=== PATIENT | female | born 1960 | race Two or more races ===

== ENCOUNTER 2024-03-03 10:30 | Outpatient (CLI) | payer OTHER ==
[~2024-03-03 10:30] MED LIST: ADULT LOW DOSE81 M1 PO; LEVOFLOXACIN500 MG PO; LISINOPRIL20 MG PO; PAIN RELIEVER500 M2 PO; TAMS0.4C PO; TOPROL XL100 M1 PO; ZESTRIL20 MG PO
== END 2024-03-03 10:36 | disposition home or self-care (01) ==
LOC: MRI 10:30
PROVIDERS: ATTEND Internal Medicine Hematology & Oncology
DX: C64.2 Malignant neoplasm of left kidney, except renal pelvis (principal); R93.422 Abnormal radiologic findings on diagnostic imaging of left kidney; I10 Essential (primary) hypertension; M19.91 Primary osteoarthritis, unspecified site
CPT/HCPCS: 70553; Q9965

== ENCOUNTER 2024-04-16 12:34 | Outpatient (CLI) | payer OTHER | END 2024-04-16 12:37 | disposition home or self-care (01) | LOC: RAD 12:34 | PROVIDERS: ATTEND Internal Medicine | DX: I10 Essential (primary) hypertension (principal) ==

== ENCOUNTER 2024-05-01 07:00 | Inpatient (IN) | payer OTHER ==
[~2024-05-01] VITALS: Ht 160 cm; Wt 86.2 kg
[~2024-05-01 07:00] MED LIST changes: -OMEPRAZOLE
[2024-05-01 07:24] LABS: URINE APPEARANCE Clear; URINE BILIRRUBIN Negative (NEGATIVE); URINE BLOOD Negative; URINE COLOR Yellow; URINE GLUCOSE Negative (NEGATIVE); URINE KETONE Negative (NEGATIVE); URINE LEUKOCYTE Negative; URINE NITRATE Negative; URINE PROTEIN Negative (NEGATIVE)
[2024-05-01 07:27] LABS: URINE BACTERIA 136.9 uL (0.0-1933); URINE EPITHELIAL CELLS 16.1 uL (0.0-38.8); URINE RBC 6.6 uL (0.0-20.8); URINE WBC 5.8 uL (0.0-23.2)
[2024-05-01] MEDS ORDERED: OMEPRAZOLE (07:28)
[2024-05-01 07:37] LABS: HEMATOCRIT 33.8 % (36.0-45.00); HEMOGLOBIN 12.1 g/dL (12.0-15.00); MEAN CELL VOLUME 92.7 fL (80.00-100.00); MEAN CORPUSCULAR HEMOGLOBIN 33.2 pg (27.00-32.0); MEAN CORPUSCULAR HGB CONC 35.8 g/dl (32.0-36.0); PLATELET COUNT 205 K/uL (150-450); RED BLOOD COUNT 3.65 M/uL (4.00-6.00); RED CELL DISTRIBUTION WIDTH 13.9 % (11.5-14.5)
[2024-05-01 07:51] LABS: PARTIAL THROMBOPLASTIN TIME 25.7 SECONDS (22.0-34.0); PROTHROMBIN TIME 10.9 SECONDS (9.0-11.5)
[2024-05-01 09:08] VITALS: BP 144/88
[2024-05-01 10:14] LABS: RH POSITIVE
[2024-05-01 11:01] LABS: CALCIUM 8.8 mg/dL (8.5-10.1); CREATININE SERUM 1.11 mg/dL (0.55-1.02); GFR 49.33; POTASSIUM 3.85 mEq/L (3.5-5.1)
[2024-05-09] MEDS ORDERED: CEFAZOLIN SODIUM 1,000 MG VIAL ONE (07:25)
[2024-05-09] MEDS ORDERED: ENOXAPARIN SODIUM 40 MG/0.4 ML SYRINGE SUBCUTANEO ONE (07:25)
[2024-05-09] MEDS ORDERED: BUPIVACAINE HCL/MPF 0.5% 30ML VIAL ONE (07:25)
[2024-05-09] MEDS ORDERED: ACID REDUCER20 M1 (10:57)
[2024-05-09] MEDS ORDERED: MORPHINE SULFATE 2 MG/ML CARTRIDGE IV ONE ×2 (17:05→17:35)
[2024-05-09] MEDS ORDERED: DEXTROSE 5 %-0.45 % SOD CHLORD 1,000 ML IV SCH (18:37)
[2024-05-09] MEDS ORDERED: SIMETHICONE 125 MG CAPSULE PO SCH (18:42)
[2024-05-09] MEDS ORDERED: FAMOtidine 20 MG TABLET PO SCH (18:42)
[2024-05-09] MEDS ORDERED: ONDANSETRON HCL 2 MG/ML VIAL IV PRN (18:45)
[2024-05-09] MEDS ORDERED: MORPHINE SULFATE 2 MG/ML CARTRIDGE IV PRN (18:45)
[2024-05-09 19:26] VITALS: BP 113/74; O2SAT 99
[2024-05-10 01:00] VITALS: BP 114/70; O2SAT 100
[2024-05-10] MEDS ORDERED: CEFAZOLIN SODIUM 1,000 MG VIAL IV SCH (01:00)
[2024-05-10 08:00] VITALS: BP 110/70; O2SAT 97
[2024-05-10 08:15] LABS: HEMATOCRIT 35.6 % (36.0-45.00); HEMOGLOBIN 12.3 g/dL (12.0-15.00); MEAN CELL VOLUME 93.7 fL (80.00-100.00); MEAN CORPUSCULAR HEMOGLOBIN 32.5 pg (27.00-32.0); MEAN CORPUSCULAR HGB CONC 34.6 g/dl (32.0-36.0); PLATELET COUNT 179 K/uL (150-450)
[2024-05-10 08:34] LABS: CALCIUM 8.1 mg/dL (8.5-10.1); CREATININE SERUM 0.98 mg/dL (0.55-1.02); GFR 56.96; POTASSIUM 3.95 mEq/L (3.5-5.1)
[2024-05-10] MEDS ORDERED: DOCUSATE SODIUM 100MG CAP PO SCH (09:00)
[2024-05-10] MEDS ORDERED: LISINOPRIL 20 MG TABLET PO SCH (10:59)
[2024-05-10] MEDS ORDERED: ENOXAPARIN SODIUM 30 MG/0.3 ML SYRINGE SUBCUTANEO ONE (11:00)
[2024-05-10] MEDS ORDERED: ACETAMINOPHEN WITH CODEINE 1 UDTAB TABLET PO PRN (11:00)
[2024-05-10] MEDS ORDERED: PANTOPRAZOLE SODIUM 40 MG TABLET.DR PO NR (11:45)
[2024-05-10] MEDS ORDERED: METOPROLOL SUCCINATE 100 MG TAB.SR.24H PO NR (11:45)
[2024-05-10] MEDS ORDERED: POLYETHYLENE GLYCOL 3350 17 GM BLIST.PACK PO SCH (12:00)
[2024-05-10 16:02] VITALS: BP 113/73; O2SAT 96
[2024-05-10 16:56] VITALS: BP 133/80; O2SAT 99
[2024-05-11 00:51] VITALS: BP 127/74; O2SAT 96
[2024-05-11 07:48] LABS: HEMATOCRIT 35.4 % (36.0-45.00); HEMOGLOBIN 11.9 g/dL (12.0-15.00); MEAN CELL VOLUME 95.1 fL (80.00-100.00); MEAN CORPUSCULAR HEMOGLOBIN 32.1 pg (27.00-32.0); MEAN CORPUSCULAR HGB CONC 33.7 g/dl (32.0-36.0); PLATELET COUNT 158 K/uL (150-450); RED BLOOD COUNT 3.72 M/uL (4.00-6.00); RED CELL DISTRIBUTION WIDTH 13.5 % (11.5-14.5)
[2024-05-11 07:58] LABS: CALCIUM 8.3 mg/dL (8.5-10.1); CREATININE SERUM 0.83 mg/dL (0.55-1.02); GFR 68.99; POTASSIUM 4.1 mEq/L (3.5-5.1)
[2024-05-11 08:00] VITALS: BP 116/73; O2SAT 95
[2024-05-11] MEDS ORDERED: METOPROLOL SUCCINATE 100 MG TAB.SR.24H PO SCH (09:00)
[2024-05-11] MEDS ORDERED: LISINOPRIL 20 MG TABLET PO SCH (09:00)
[2024-05-11] MEDS ORDERED: PANTOPRAZOLE SODIUM 40 MG TABLET.DR PO SCH (09:00)
[2024-05-11] MEDS ORDERED: ENOXAPARIN SODIUM 30 MG/0.3 ML SYRINGE SUBCUTANEO NR (11:30)
[2024-05-11 16:47] VITALS: BP 124/77; O2SAT 98
[2024-05-12] MEDS ORDERED: ENOXAPARIN SODIUM 30 MG/0.3 ML SYRINGE SUBCUTANEO SCH (09:00)
== END 2024-05-12 08:23 | disposition home or self-care (01) | DRG 658 ==
LOC: O/R 05-09 06:34 → SURH 05-09 07:00
PROVIDERS: ADMIT Urology; ATTEND Urology
PROC: 0TT74ZZ Resection of Left Ureter, Percutaneous Endoscopic Approach (ICD-10-PCS; 2024-05-09)
PROC: 07TB4ZZ Resection of Mesenteric Lymphatic, Percutaneous Endoscopic Approach (ICD-10-PCS; 2024-05-09)
PROC: 8E0W3CZ Robotic Assisted Procedure of Trunk Region, Percutaneous Approach (ICD-10-PCS; 2024-05-09)
PROC: 0TT14ZZ Resection of Left Kidney, Percutaneous Endoscopic Approach (ICD-10-PCS; principal; 2024-05-09 07:00)
DX: C65.2 Malignant neoplasm of left renal pelvis (principal); D30.22 Benign neoplasm of left ureter; D30.02 Benign neoplasm of left kidney; R59.0 Localized enlarged lymph nodes
CPT/HCPCS: 50548; 38570; S2900

== ENCOUNTER → 2024-05-01 | Outpatient (CLI) | payer OTHER ==
[~2024-05-01] MED LIST changes: +OMEPRAZOLE
[2024-05-01 08:25] LABS: ALBUMIN 3.6 gm/dL (3.4-5.0); BILIRUBIN TOTAL 0.2 mg/dL (0.3-1.2); CALCIUM 8.8 mg/dL (8.5-10.1); CREATININE SERUM 1.11 mg/dL (0.55-1.02); GFR 49.33; GLOBULINA 3.3 G/DL (2.4-3.5); POTASSIUM 3.85 mEq/L (3.5-5.1); TOTAL PROTEIN 6.9 gm/dL (6.4-8.2)
== END | disposition home or self-care (01) ==
LOC: LAB 06:32
PROVIDERS: ATTEND Internal Medicine Hematology & Oncology
DX: D50.8 Other iron deficiency anemias (principal); I10 Essential (primary) hypertension; R74.02 Elevation of levels of lactic acid dehydrogenase [LDH]; K76.89 Other specified diseases of liver; C25.9 Malignant neoplasm of pancreas, unspecified; R97.8 Other abnormal tumor markers; R97.0 Elevated carcinoembryonic antigen [CEA]; C64.2 Malignant neoplasm of left kidney, except renal pelvis; R93.422 Abnormal radiologic findings on diagnostic imaging of left kidney; M19.91 Primary osteoarthritis, unspecified site

== ENCOUNTER 2024-06-10 06:29 | Day surgery (SDC) | payer OTHER ==
[2024-06-04 10:26] LABS: PH,URINE 5.5 (5.0-8.0); URINE APPEARANCE Clear; URINE BILIRRUBIN Negative (NEGATIVE); URINE COLOR Yellow; URINE GLUCOSE Negative (NEGATIVE); URINE KETONE Negative (NEGATIVE); URINE LEUKOCYTE Moderate; URINE NITRATE Negative; URINE PROTEIN Negative (NEGATIVE); URINE UROBILINOGEN 0.2 E.U./dl
[2024-06-04 10:32] LABS: URINE BACTERIA 178.6 uL (0.0-1933); URINE EPITHELIAL CELLS 23.1 uL (0.0-38.8); URINE RBC 11.4 uL (0.0-20.8); URINE WBC 377.9 uL (0.0-23.2)
[2024-06-04 10:39] LABS: HEMATOCRIT 35.4 % (36.0-45.00); MEAN CELL VOLUME 94.8 fL (80.00-100.00); MEAN CORPUSCULAR HEMOGLOBIN 32.2 pg (27.00-32.0); MEAN CORPUSCULAR HGB CONC 33.9 g/dl (32.0-36.0); PLATELET COUNT 224 K/uL (150-450); RED BLOOD COUNT 3.73 M/uL (4.00-6.00); RED CELL DISTRIBUTION WIDTH 13.5 % (11.5-14.5)
[2024-06-04 10:49] VITALS: BP 121/81
[2024-06-04 11:00] LABS: BILIRUBIN TOTAL 0.33 mg/dL (0.3-1.2); CALCIUM 9.6 mg/dL (8.5-10.1); CREATININE SERUM 1.19 mg/dL (0.55-1.02); GFR 45.52; GLOBULINA 3.4 G/DL (2.4-3.5); POTASSIUM 3.76 mEq/L (3.5-5.1); TOTAL PROTEIN 7.4 gm/dL (6.4-8.2)
[2024-06-04 11:05] LABS: URINE BLOOD TRACES
[2024-06-04 11:07] LABS: INR 1.05; PARTIAL THROMBOPLASTIN TIME 25.3 SECONDS (22.0-34.0); PROTHROMBIN TIME 11.4 SECONDS (9.0-11.5)
[~2024-06-10] VITALS: Ht 160 cm; Wt 82.6 kg
[~2024-06-10 06:29] MED LIST changes: +ACID REDUCER20 M1; +OMEPRAZOLE
[2024-06-10] MEDS ORDERED: BUPIVACAINE HCL/PF 0.25% 30ML VIAL InF ONE (12:15)
[2024-06-10] MEDS ORDERED: HEPARIN SODIUM,PORCINE 500 UNITS/5 ML VIAL IV ONE (12:15)
[2024-06-10] MEDS ORDERED: CEFAZOLIN SODIUM 1,000 MG VIAL IV ONE (12:15)
[2024-06-10] MEDS ORDERED: FAMOTIDINE/PF 20 MG/10 ML SYRINGE IV SCH (13:15)
[2024-06-10] MEDS ORDERED: CEFAZOLIN SODIUM 1,000 MG VIAL IV SCH (13:15)
[2024-06-10] MEDS ORDERED: CEFAZOLIN SODIUM 1,000 MG VIAL ONE (13:31)
[2024-06-10] MEDS ORDERED: FAMOTIDINE/PF 20 MG/2 ML VIAL ONE (13:31)
== END 2024-06-10 14:50 | disposition home or self-care (01) ==
LOC: CIR.AMB 06:29
PROVIDERS: ATTEND Specialist
DX: C64.2 Malignant neoplasm of left kidney, except renal pelvis (principal); M19.90 Unspecified osteoarthritis, unspecified site; I10 Essential (primary) hypertension; E66.9 Obesity, unspecified
CPT/HCPCS: 36561; C1751

== ENCOUNTER 2024-07-23 22:41 | Emergency (ER) | payer OTHER ==
[~2024-07-23] VITALS: Ht 160 cm; Wt 81.6 kg
[2024-07-23] MEDS ORDERED: CLONIDINE HCL 0.1 MG TABLET PO ONE ×2 (23:25→23:30)
[2024-07-24 00:40] LABS: COVID-19 AG NEGATIVE (NEGATIVE)
[2024-07-24 00:45] LABS: INFLUENZA A AG NEGATIVE (NEGATIVE)
[2024-07-24 00:49] LABS: HEMATOCRIT 34.6 % (36.0-45.00); HEMOGLOBIN 11.9 g/dL (12.0-15.00); MEAN CELL VOLUME 93.4 fL (80.00-100.00); MEAN CORPUSCULAR HEMOGLOBIN 32.2 pg (27.00-32.0); MEAN CORPUSCULAR HGB CONC 34.5 g/dl (32.0-36.0); PLATELET COUNT 104 K/uL (150-450); RED BLOOD COUNT 3.71 M/uL (4.00-6.00); RED CELL DISTRIBUTION WIDTH 13.9 % (11.5-14.5)
[2024-07-24 01:14] LABS: ALBUMIN 3.5 gm/dL (3.4-5.0); BILIRUBIN TOTAL 0.63 mg/dL (0.3-1.2); CALCIUM 8.8 mg/dL (8.5-10.1); CREATININE SERUM 1.25 mg/dL (0.55-1.02); GFR 43.01; GLOBULINA 2.7 G/DL (2.4-3.5); POTASSIUM 4.48 mEq/L (3.5-5.1); TOTAL PROTEIN 6.2 gm/dL (6.4-8.2)
[2024-07-24 03:56] LABS: PH,URINE 6.5 (5.0-8.0); URINE APPEARANCE Clear; URINE BILIRRUBIN Negative (NEGATIVE); URINE BLOOD Moderate; URINE COLOR Yellow; URINE GLUCOSE Negative (NEGATIVE); URINE KETONE Negative (NEGATIVE); URINE LEUKOCYTE Moderate; URINE NITRATE Negative; URINE PROTEIN Trace (NEGATIVE)
[2024-07-24 04:00] LABS: URINE BACTERIA 154.1 uL (0.0-1933); URINE EPITHELIAL CELLS 13.1 uL (0.0-38.8); URINE RBC 150.6 uL (0.0-20.8); URINE WBC 427.5 uL (0.0-23.2)
[2024-07-24] MEDS ORDERED: 0.9 % SODIUM CHLORIDE 500 ML IV ONE (04:00)
[2024-07-24 05:53] LABS: URINE MUCUS SCANT
[2024-07-24] MEDS ORDERED: CEFTRIAXONE SODIUM 1,000 MG VIAL ONE (06:18)
[2024-07-24] MEDS ORDERED: CEFTRIAXONE SODIUM 1,000 MG VIAL IV STA (06:18)
[2024-07-24] MEDS ORDERED: CEPHALEXIN500 MG PO (06:22)
[2024-07-24] MEDS ORDERED: ACETAMINOPHEN 500 MG GEL..CAP PO ONE ×2 (06:29→06:45)
== END 2024-07-24 06:43 ==
LOC: ER 22:41
PROVIDERS: General Practice
DX: I10 Essential (primary) hypertension (principal); N39.0 Urinary tract infection, site not specified; E86.0 Dehydration; Z20.822 Contact with and (suspected) exposure to COVID-19
CPT/HCPCS: 36415; 93005; 96365; 96366; 99282; J0696; J7042

== ENCOUNTER → 2024-07-25 | Emergency (ER) | payer OTHER ==
[~2024-07-25] VITALS: Ht 160 cm; Wt 81.6 kg
[~2024-07-25] MED LIST changes: +CEPHALEXIN500 MG PO
== END | disposition left against medical advice (07) ==
LOC: ER 00:13
DX: Z53.21 Procedure and treatment not carried out due to patient leaving prior to being seen by health care provider (principal)

== ENCOUNTER 2024-08-04 09:48 | Outpatient (CLI) | payer OTHER ==
[2024-08-04 11:03] LABS: PH,URINE 5.5 (5.0-8.0); URINE APPEARANCE Cloudy; URINE BILIRRUBIN Negative (NEGATIVE); URINE BLOOD Trace; URINE COLOR Yellow; URINE GLUCOSE Negative (NEGATIVE); URINE KETONE Negative (NEGATIVE); URINE LEUKOCYTE Large; URINE NITRATE Negative; URINE PROTEIN Negative (NEGATIVE); URINE UROBILINOGEN 0.2 E.U./dl
[2024-08-04 11:07] LABS: URINE EPITHELIAL CELLS 8.5 uL (0.0-38.8); URINE RBC 5.3 uL (0.0-20.8); URINE WBC 1884.6 uL (0.0-23.2)
[2024-08-04 11:21] LABS: BASO % 0.3 % (0.1-1.2); EOS # 0.14 (0.04-0.54); EOS % 3.7 % (0.7-7.0); HEMATOCRIT 36.7 % (34.1-44.9); HEMOGLOBIN 12.5 g/dL (11.2-15.7); LYMPH # 1.06 (1.18-3.74); LYMPH % 28.1 % (19.3-53.1); MEAN CORPUSCULAR HEMOGLOBIN 31.9 pg (25.6-32.2); MONO # 0.34 (0.24-0.82); NEUT # 2.21 (1.56-6.13); NEUT % 58.6 % (34.0-71.1); PLATELET COUNT 228 K/uL (163-369); RED BLOOD COUNT 3.92 M/uL (3.93-5.22); RED CELL DISTRIBUTION WIDTH 13.9 % (11.6-14.4)
== END 2024-08-04 09:49 | disposition home or self-care (01) ==
LOC: LAB 09:48
PROVIDERS: ATTEND Internal Medicine Hematology & Oncology
DX: N39.0 Urinary tract infection, site not specified (principal); D50.8 Other iron deficiency anemias

== ENCOUNTER 2025-03-24 10:34 | Outpatient (CLI) | payer OTHER ==
[2025-03-24 12:15] LABS: COVID-19 AG NEGATIVE (NEGATIVE); MYCOPLASMA PNEUMONIAE IGM NON REACTIVE (NO REACTIVE)
== END 2025-03-24 10:44 | disposition home or self-care (01) ==
LOC: LAB 10:34
DX: J15.7 Pneumonia due to Mycoplasma pneumoniae (principal); J09.X1 Influenza due to identified novel influenza A virus with pneumonia; U07.1 COVID-19